=== PATIENT | female | born 1980 | race Caucasian/White ===

== ENCOUNTER 2020-06-10 12:15 | Emergency (ER) | payer OTHER ==
[~2020-06-10] VITALS: Ht 162.6 cm; Wt 78.0 kg
[2020-06-10 12:25] VITALS: BP 139/89; Ht 162.6 cm; Wt 78.0 kg
[2020-06-10] MEDS ORDERED: ZOF4 PO (14:00)
== END 2020-06-10 14:28 | disposition home or self-care (01) ==
LOC: ED 12:15
DX: S00.03XA Contusion of scalp, initial encounter (principal); M54.2 Cervicalgia; Z98.890 Other specified postprocedural states; W22.8XXA Striking against or struck by other objects, initial encounter; Y93.89 Activity, other specified; Y92.89 Other specified places as the place of occurrence of the external cause; Y99.8 Other external cause status